=== PATIENT | female | born 1955 | race Caucasian/White ===

== ENCOUNTER 2016-07-24 15:49 | Emergency (ER) | payer BC ==
[~2016-07-24] VITALS: Ht 160 cm; Wt 73.0 kg
[~2016-07-24 15:49] MED LIST: NO MEDS.
[2016-07-24 15:52] VITALS: Ht 160 cm; Wt 73.0 kg
--- NOTE | 2016-07-24 16:23 | ERA ---
ER Documentation Chief Complaint Date/Time DATE: 07/24/16 TIME: 16:18 Chief Complaint LT LEG CRAMPING , NON TRAUMATIC HPI Patient is a 60-year-old female who presents pain in the left leg that feels like and not distressing. Patient describes the pain as 10 out of 10 during a "episode". Patient has had these symptoms before and not only the left but the right leg as well. Patient's had these symptoms about once every other week for the past year or so. Pt denies h/o SYDNI including overuse, strain, or trauma ; Denies constant pain >6 weeks; Denies saddle parasthesia, incontinence, RPNF, or pain exacerbated by valsalva. Pt denies fever, chills, night sweats, weight loss, or increase symptoms at night. Denies h/o sciatica, disk herniation, spinal stenosis, fibromyalgia cancer, HIV, IVDU, arthritis or recent surgery. ROS All systems reviewed and are negative except as per history of present illness. Medications Home Meds Reported Medications [No Meds.] No Conflict Check 12/11/11 [None] No Conflict Check 11/12/11 Allergies Allergies: Coded Allergies: No Known Drug Allergies (Verified Allergy, Unknown, 07/24/16) PMhx/Soc History of Surgery: Yes (D&C,POLYP REMOVAL) Anesthesia Reaction: No Hx Neurological Disorder: No Hx Respiratory Disorders: No Hx Cardiac Disorders: No Hx Psychiatric Problems: No Hx Miscellaneous Medical Probl: No Hx Alcohol Use: Yes (OCCASIONAL) Hx Substance Use: No Hx Tobacco Use: No Physical Exam Vitals Vital Signs Date Time Temp Pulse Resp B/P Pulse Ox O2 Delivery O2 Flow Rate FiO2 07/24/16 15:52 98.1 73 18 143/88 98 Physical Exam Const: Obese 60-year-old female who is sitting in a wheelchair upon entering the room. Patient is Romanian-speaking and daughter is a factory maintenance manager and seems reliable. Head: Atraumatic Eyes: Normal Conjunctiva ENT: Normal External Ears, Nose and Mouth. Neck: Full range of motion..~ No meningismus. Resp: Clear to auscultation bilaterally Cardio: Regular rate and rhythm, no murmurs Abd: Soft, non tender, non distended. Normal bowel sounds Skin: No petechiae or rashes Back: No midline or flank tenderness. Positive straight leg raise test on the left side. No pain with straight leg raise on the right side. Pulses are 2 + bilaterally and patient is neurovascularly intact bilaterally. Ext: No cyanosis, or edema Neur: Awake and alert Psych: Normal Mood and Affect Results 24 hrs Current Medications Medications (Trade) Dose Ordered Sig/Lynne Route PRN Reason Start Time Stop Time Status Last Admin Dose Admin Acetaminophen/ Hydrocodone Bitart ([place] (5/325)) 1 tab ONCE ONCE PO 07/24/16 16:30 07/24/16 16:31 DC Procedures/MDM Patient is a 52-year-old female presents shortly after abrupt onset of pain in the right leg. Patient has had this pain before. Patient denies any incontinence. Patient denies constant pain over 6 months. At this time I do not believe cauda equina syndrome is in the differential diagnosis. Most likely diagnosis at this time is sciatica. Currently off to diagnose right sided due to absence of symptoms on the left side. There is no saddle paresthesia. Patient is stable and is able to walk although diligently. We will go ahead and discharge the patient with advised to follow-up with primary care provider to get a more thorough evaluation and formal referral to an intensive care medicine specialist. Discharge medications will include [place]. Departure Diagnosis: Primary Impression: Sciatica Qualified Code: M54.32 - Sciatica of left side Condition: Stable YANG BANGURA PA-C Jul 24, 2016 16:22
[2016-07-24] MEDS ORDERED: HYDROCODONE/APAP (5/325) TAB PO ONE (16:30)
--- NOTE | 2016-07-24 16:57 | RADRPT ---
PROCEDURE: XR Lumbar Spine. CLINICAL INDICATION: Back pain. TECHNIQUE: Three views. AP, lateral and cone-down lateral view of the lumbar spine were obtained. COMPARISON: No prior studies are available for comparison. FINDINGS: There is normal stature and alignment of the vertebrae. There is no fracture. There is no lytic or blastic lesion. The disk height is normal. There is hypertrophy of the facet joints at L5-S1. The paravertebral soft tissues are unremarkable. IMPRESSION: 1. Degenerative changes at L5-S1. 2. Otherwise unremarkable images of the lumbar spine. RPTAT: QQ .Real Hernandez MD, MD Date Time Electronically viewed and signed by .Real Hernandez MD, on 07/24/2016 16:57 .R/
[2016-07-24] MEDS ORDERED: HYDR-906 PO (17:08)
[2016-07-24 17:38] VITALS: BP 138/78; PULSE 75; RESP 19
== END 2016-07-24 17:39 | disposition home or self-care (01) ==
LOC: FTE 15:49
DX: M54.32 Sciatica, left side (principal)
CPT/HCPCS: 72100

== ENCOUNTER 2016-10-26 07:40 | Emergency (ER) | payer BC, OTHER ==
[~2016-10-26] VITALS: Ht 160 cm; Wt 73.6 kg
[~2016-10-26 07:40] MED LIST changes: +HYDR-906 PO
[2016-10-26 07:44] VITALS: Ht 160 cm; Wt 73.6 kg
--- NOTE | 2016-10-26 08:08 | ERD ---
ER Documentation Chief Complaint Date/Time DATE: 10/26/16 TIME: 08:01 Chief Complaint left leg pain/swelling x 1 day ukn cause HPI 61-year-old female who presented emergency department for nontraumatic left leg pain and swelling for 1 day. Stated that she cannot bear weight on her left lower extremity. Was at her primary care physician yesterday for this complaint , prescribed with Naprosyn without relief, given recommendation for x-ray of the left knee and MRA of the left knee. Was here last July and was diagnosed with left-sided sciatica. Denies headache, loss of consciousness, dizziness, blurry vision, changes in vision, photophobia, facial pain, ear pain, throat pain, difficulty swallowing, neck pain, shoulder pain, chest pain, cough, hemoptysis, abdominal pain, back pain, loss of appetite, nausea, vomiting, hematochezia, diarrhea, constipation, urinary symptoms, , the possibility of being , bladder and bowel incontinences, extremity weakness, numbness or tingling sensation, recent travel, recent exposure to illness, recent antibiotic use in the last 3 months, fever, chills. LMP: None. A0 M1 No known drug allergies. No past medical history. Surgery: Biopsy of the left breast. Medication: Naproxen. Social: Works here in [employer]. Denies smoking, use of alcohol, use of illegal drugs. ROS All systems reviewed and are negative except as per history of present illness. Medications Home Meds Active Scripts Hydrocodone/Acetaminophen (Ava 5-325 Tablet) 1 Each Tablet, 1 TAB PO Q6H Y for PAIN, #7 TAB Prov:YANG BANGURA PA-C 07/24/16 Reported Medications [No Meds.] No Conflict Check 12/11/11 [None] No Conflict Check 11/12/11 Allergies Allergies: Coded Allergies: No Known Drug Allergies (Verified Allergy, Unknown, 07/24/16) PMhx/Soc Medical and Surgical Hx: pt denies Surgical Hx History of Surgery: No Anesthesia Reaction: No Hx Neurological Disorder: No Hx Respiratory Disorders: No Hx Cardiac Disorders: No Hx Psychiatric Problems: No Hx Alcohol Use: No Hx Substance Use: No Hx Tobacco Use: No Smoking Status: Never smoker Physical Exam Vitals Vital Signs Date Time Temp Pulse Resp B/P Pulse Ox O2 Delivery O2 Flow Rate FiO2 10/26/16 07:44 98.1 72 18 120/80 95 Physical Exam CONSTITUTIONAL: Well-appearing; well-nourished; in no apparent distress. HEAD: Normocephalic; atraumatic. EYES: Conjunctiva clear, sclera non-icteric, EOM intact. PERRL Ears: Hearing intact. EACs clear, TMs non-bulging, non-inflamed, translucent & mobile, ossicles normal appearance, No obstructions, no erythema, no discharges Nose: No obstructions. No polyps. No external lesions. Mucosa non-inflamed. No external lesions, septum and turbinates normal. No rhinorrhea. No discharges. Frontal sinus is non-tender to palpation. Maxillary sinus is non-tender to palpation. MOUTH: Moist mucous membranes, no lesion, no obstructions, no vesicles, no thrush, patent airway Throat: Uvula in midline. Right tonsil is +1 with no erythema, no exudate. Left tonsil is +1 with no erythema, no exudate. Tolerating secretions well. Good gag reflex. Patent airway. Neck: Supple, without lesions, bruits, or adenopathy. No mass. Thyroid non- enlarged and non-tender to palpation. CHEST: Symmetrical chest. Respirations even and not labored. No retractions noted. CARDIOVASCULAR: Normal S1, S2. RRR. No murmurs, gallops. RESPIRATORY: Normal chest excursion with respiration; breath sounds clear and equal bilaterally; no wheezes, rhonchi, or rales. Breathing even and unlabored. Speaking in clear, full, and complete sentences w/ ease. ABDOMEN: Normal bowel sounds normal. Soft, round, non-distended, non-guarding, no tenderness, no rebound, no organomegaly, no masses, no pulsating abdominal mass. No hernia. No peritoneal signs. : No CVA tenderness. BACK: Symmetrical shoulder. Spine is midline without deformity, tenderness. No evidence of trauma or deformity. PELVIS: Stable pelvis. No evidence of trauma or deformity. MUSCULOSKELETAL: Normal gait and station. No misalignment, asymmetry, crepitation, defects, tenderness, masses, effusions, decreased range of motion, instability, atrophy or abnormal strength or tone in the head, neck, spine, ribs , pelvis or extremities. Bilateral hips are unremarkable/stable with good and full range of motion. Right lower extremity is unremarkable. Left knee has no obvious deformity/discoloration. Left calf has no discoloration but tender to palpation. Left ankle/foot has no deformity/discoloration and is good and full range of motion. Left pedal pulse is unremarkable. No calf tenderness. NEUROVASCULAR: Distal pulses are present. Pedal pulse are present, equal, and normal. Capillary refills are < 2 seconds. NEUROLOGIC: Alert and oriented x4. Speaks full and clear sentences. Cranial Nerves II-XII normal. Sensation to pain, touch, and proprioception normal. Grossly unremarkable. No neurologic deficits. Romberg test is negative. PSYCHOLOGICAL: The patients mood and manner are appropriate. No hallucinations , delusions. Not SI. Not HI. Has the capacity to decide for self SKIN: Normal for age and ethnicity; warm; dry; good turgor; no apparent lesions or exudates. No rashes, hives, discoloration. Intact. Procedures/MDM Examination: Please see physical examination. Disease process, medical treatment was explained to the patient and family member. They verbalized understanding and agreed with the diagnostic tests, medical treatment, and follow-up care. Case was discussed with supervising emergency room physician, Dr. Estrada Mazariegos who who recommended x-ray of the left knee and left lower extremity ultrasound at this time. Radiology: X-ray of the left knee Impression: Mild tricompartmental degenerative changes of the left knee. Venous Doppler/ultrasound of the left lower extremity Impression: No evidence of deep vein thrombosis within the left lower extremity. Case was discussed with supervising emergency room physician, Dr. Estrada Mazariegos who suggested for me to call Dr. Yariel Lee. Spoke with Dr. Yariel Lee. I discussed with him the results of x-ray and ultrasound. He agreed in my medical decision making to discharge the patient and have her continue her Naprosyn at home. He also stated to have the patient schedule her own MRI. Conversation with Dr. Yariel Lee was discussed with Dr. Estrada Mazariegos who agreed with my medical decision making to discharge the patient. Re-evaluation: No calf tenderness bilaterally. No neurovascular deficits. C- spine/T-spine/L-spine are in midline with good and full range of motion and has no swelling/tenderness/deformity/discoloration. No neurological deficits. Consultation: None. Differential diagnosis: Deep vein thrombosis versus fracture versus dislocation versus displacement versus contusion versus sprain versus sciatica Medical decision makin-year-old female who presented emergency department for nontraumatic left leg pain and swelling for 1 day. Stated that she cannot bear weight on her left lower extremity. Was at her primary care physician yesterday for this complaint, prescribed with Naprosyn without relief, given recommendation for x-ray of the left knee and MRA of the left knee. Was here last July and was diagnosed with left-sided sciatica. I discussed this case with my supervising emergency room physician, Dr. Estrada Mazariegos who agreed in my medical decision making to discharge patient. I also discussed this case with her primary care physician, Dr. Yariel Lee who agreed medical decision making discharge the patient and have the patient schedule her own MRI outpatient. Medications prescribed are the following: Continue her prescribed medication, Naproxen. Patient and family member are made aware of the side effects and adverse reactions of the medications prescribed. Instructed on when to seek emergent and medical attention in case allergic/anaphylactic reactions or severe side effects and or adverse reactions to medications. Patient and family member verbalized understanding. Patient instructed Instructed to follow-up with his PCP in 24-48 hours. Instructed to Call 911 for chest pain, shortness of breath. Advised to come back here in ED as soon as possible for severity of symptoms which includes but not limited to: any new symptoms; shortness of breath/difficulty of breathing; cardiovascular changes; severe gastrointestinal symptoms; signs and symptoms of bleeding and or infection; signs of compartment syndrome/neurovascular changes; neurological changes/deficits. Patient and family member verbalized understanding. Upon discharge, patient is alert and oriented x 4, speaks full and clear sentences, denies pain, has no neurological deficits, has no neurovascular deficits, difficulty of breathing. Breathing even and unlabored. Lung sounds are clear to auscultation. Not in distress. Appears comfortable. Ambulatory with steady gait. Appears satisfied with care provided here in ED. Departure Diagnosis: Primary Impression: DJD (degenerative joint disease) Additional Impression: Knee pain Condition: Stable Additional Instructions: Instructed to follow-up with his PCP in 24-48 hours. Instructed to Call 911 for chest pain, shortness of breath. Advised to come back here in ED as soon as possible for severity of symptoms which includes but not limited to: any new symptoms; shortness of breath/difficulty of breathing; cardiovascular changes; severe gastrointestinal symptoms; signs and symptoms of bleeding and or infection; signs of compartment syndrome/neurovascular changes; neurological changes/deficits. Patient and family member verbalized understanding. ALIE PEARCE Oct 26, 2016 08:08
--- NOTE | 2016-10-26 08:38 | RADRPT ---
PROCEDURE: Ultrasound of the left lower extremity venous system. CLINICAL INDICATION: Left leg pain and swelling, deep venous thrombosis TECHNIQUE: Morrissey scale with and without compression, color doppler, spectral doppler of the venous system of the left lower extremity was performed. Venous augmentation maneuvers were utilized. COMPARISON: No prior studies are available for comparison. FINDINGS: Common femoral vein: Patent. Femoral vein: Patent. Popliteal vein: Patent. Calf veins: Patent. No soft tissue abnormalities are identified. IMPRESSION: No evidence of a deep vein thrombosis within the left lower extremity. RPTAT: AADD .Eliseo Garcia MD, MD Date Time Electronically viewed and signed by .Eliseo Garcia MD, on 10/26/2016 08:38 .B/
--- NOTE | 2016-10-26 10:13 | RADRPT ---
PROCEDURE: Left knee series. CLINICAL INDICATION: Left knee pain TECHNIQUE: 4 views of the left knee. COMPARISON: None available FINDINGS: There is normal mineralization and alignment of the left knee. No acute fracture or dislocation is seen. There is mild tricompartmental joint space narrowing and osteophyte formation. No definite j oint effusion is seen. The soft tissues are within normal limits. IMPRESSION: 1. Mild tricompartmental degenerative changes of the left knee. RPTAT: KK .Vitaliy Ugalde MD, MD Date Time Electronically viewed and signed by .Vitaliy Ugalde MD, on 10/26/2016 10:12 .B/
== END 2016-10-26 10:40 | disposition home or self-care (01) ==
LOC: FTE 07:40 → EEVIPCON 07:40 → MERGE 07:40 → FTE 10:40
DX: M19.90 Unspecified osteoarthritis, unspecified site (principal); M25.562 Pain in left knee
CPT/HCPCS: 73562; 93971

== ENCOUNTER → 2016-11-08 | Outpatient (CLI) | payer BC ==
[~2016-11-08] MED LIST changes: +PAIN MED
--- NOTE | 2016-11-15 13:27 | HKNOTE ---
DATE OF SERVICE: 11/08/2016 Dr. Yariel Lee [address] [facility] [address] [place] [address] Lee: Thank you for referring Bindu Garcia who was seen in my office today complaining of pain, swelling and instability of her left knee. She has all the classic symptoms, clinical and imaging findings of a torn medial meniscus. She does have some mild arthritis of the knee as well. She most definitely will need to have an arthroscopic operation on the knee and that will be scheduled to be performed in the near future. Thank you for your confidence in referring her to my care. With warmest regards, Dictated By: Mario Lopez MD /ada/alex /Document#: [id number]
--- NOTE | 2016-11-15 13:27 | HKNOTE ---
DATE OF SERVICE: 11/08/2016 REFERRING PHYSICIAN: Dr. Yariel Lee [id number] [place] [address] MAIN COMPLAINT: Pain in the left knee. HISTORY OF MAIN COMPLAINT: The patient is a 61-year-old female, who woke up with pain in her knee about 2 months ago. There was absolutely no history of injury to the knee. She saw Dr. Yariel Lee, who referred her for an MRI scan and an x-ray. Positive pathology was found and he referred her to me for further evaluation and management. The patient's pain does radiate down the cautery down the left leg from the knee. The pain is described as being severe and is aggravated by walking, weightbearing and stair climbing. The knee is very unstable and she can hardly walk because of the instability. The knee also locks and it swells. She does get rest pain and night pain. She has been taking ibuprofen and Naprosyn. The Naprosyn seems to help the most. She has also been icing the knee and elevating the leg. The patient has a history of pain in the lower back. She has never had an MRI scan of her lumbar spine. She has not had any treatment for her back. The patient does get pain in her lower back and she also has numbness and tingling in the left leg as well as in the left foot. The patient does not use a walking aid but she states "I am in severe pain and can't walk at all." Patient limps all the time. PAST ORTHOPEDIC HISTORY: Previous orthopedic operations: None. PRIOR CORTISONE INTAKE: None. ALCOHOL INTAKE: Only on special occasions. OTHER JOINT PROBLEMS: None. BLOOD TESTS FOR ARTHRITIS: None. WORK STATUS: The patient works in [employer]. She is well known to me from the hospital. 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 PAST MEDICAL HISTORY: Negative. PAST SURGICAL HISTORY: Negative. DRUG ALLERGIES: None. MEDICATIONS: Naprosyn. FAMILY HISTORY: Noncontributory. SYSTEMS REVIEW: Entirely negative. HABITS: Patient does not smoke or drink alcoholic beverages. VINEYARD TENDER: Dr. Yariel Lee. [id number] [place], [place] [address]. PHYSICAL EXAMINATION: GENERAL: The patient is an extremely fit-looking and youthful 61- year-old female. She has a marked antalgic gait. She does not use a walking aid. VITAL SIGNS: Height 5 foot 5 inches. weight 162 pounds. Blood pressure 100/55, temperature 98.7. NEUROLOGIC: Sensory and motor are within normal limits. Deep tendon reflexes: Right knee plus, left knee plus, right ankle, plus left ankle plus. Straight leg raising is negative bilaterally to 80 degrees. HIPS: Both hips have a full range of motion without pain. KNEES: Left knee, extension lacks 5 degrees and markedly painful to attempt to overcome the lack of extension. Flexion lacks 20 degrees )marked pain on attempting further flexion). No calf tenderness. 1+ effusion. All ligaments are intact. Homans sign is negative. Tender over the medial joint line. No calf tenderness (the patient's pain radiates to the calf from the knee but clinically there is no suggestion of deep vein thrombosis). IMAGING: X-rays of the left knee obtained at the [facility] were reviewed (3 views). These show mild degenerative changes affecting all 3 compartments. Excellent joint space remaining. No secondary changes such as subchondral sclerosis or cyst formation. An MRI scan of the left knee obtained on 10/26/2016, is reported by MD Reyna, as showing "oblique undersurface tear of the posterior horn of the medial meniscus with additional inner marginal fraying of the medial meniscus body and moderate grade chondral loss of the weightbearing medial femoral condyle. High grade chondral loss of the median ridge of the patella. Moderate- size knee joint effusion. No osseous or acute ligamentous abnormalities." A Doppler ultrasound of the left leg obtained on 10/26/2016, is reported by Dr. Garcia, as showing "no evidence of deep vein thrombosis within the left lower extremity." DIAGNOSES: 1. Torn medial meniscus of the left knee. 2. [id number] degenerative osteoarthritis of the left knee. 3. Symptoms suggestive of a possible left-sided sciatica with normal neurological examination. MANAGEMENT: The patient is advised that she will definitely need to have an arthroscopic operation on the knee. The procedure and some of the major possible complications were discussed with her in a fair amount of detail (she comes in with a family member who translates for her). The postoperative course was discussed with her. Pre and postoperative course was discussed with her. The patient is given prescription for tramadol 50 mg p.o. t.i.d. as both full management of current pain and postoperative pain. Her surgery will be scheduled to be performed in the near future. Dictated By: Mario Lopez MD /ada/alex /Document#: [id number]
== END | disposition home or self-care (01) ==
LOC: HKI 14:18
DX: S83.242A Other tear of medial meniscus, current injury, left knee, initial encounter (principal); X58.XXXA Exposure to other specified factors, initial encounter; M17.12 Unilateral primary osteoarthritis, left knee
CPT/HCPCS: G0463

== ENCOUNTER → 2016-11-15 | Outpatient (CLI) | payer BC ==
--- NOTE | 2016-11-16 03:46 | HKNOTE ---
DATE OF SERVICE: 11/15/2016 HISTORY OF PRESENT ILLNESS: The patient comes in for preoperative evaluation. She is going to have operative arthroscopy on her left knee on 11/16/2016. She has been cleared for surgery by Dr. Yariel Lee. Numerous questions were asked and answered. Postoperative course was discussed with her. She was given a prescription for postoperative pain management. Dictated By: Mario Lopez MD /ada/mary beth /Document#: [id number]
== END | disposition home or self-care (01) ==
LOC: HKI 13:28
DX: Z01.818 Encounter for other preprocedural examination (principal)
CPT/HCPCS: G0463

== ENCOUNTER 2016-11-16 06:11 | Day surgery (SDC) | payer BC ==
[2016-11-13 08:16] LABS: BASOPHILS % 0.8 % (0.0-2.0); EOSINOPHILS # 0.1 10^3/ul (0.0-0.5); HEMATOCRIT 39.9 % (37.0-47.0); HEMOGLOBIN 13.1 g/dl (12.0-16.0); LYMPHOCYTES % 50.5 % (15.0-51.0); MEAN CORPUSCULAR HEMOGLOBIN 30.5 pg (29.0-33.0); MEAN CORPUSCULAR HGB CONC 32.8 g/dl (32.0-37.0); MEAN PLATELET VOLUME 9.7 fl (7.4-10.4); MONOCYTE # 0.3 10^3/ul (0.3-0.9); MONOCYTES % 7.8 % (0.0-11.0); NEUTROPHIL # 1.5 10^3/ul (1.6-7.5); NEUTROPHILS % 38.9 % (39.0-77.0); PLATELET COUNT 251 10^3/UL (140-415); RED BLOOD COUNT 4.29 10^6/ul (4.20-5.40); RED CELL DISTRIBUTION WIDTH 13.2 % (11.5-14.5)
[2016-11-13 08:48] LABS: ADD UMIC YES; ALBUMIN 4.5 g/dl (3.3-4.9); ALBUMIN/GLOBULIN RATIO 1.36; BILIRUBIN,INDIRECT 0.1 mg/dl (0-1.1); BILIRUBIN,TOTAL 0.1 mg/dl (0.2-1.3); INR 0.89; PT RATIO 0.9; TOTAL PROTEIN 7.8 g/dl (6.1-8.1); UR ASCORBIC ACID NEGATIVE (NEGATIVE); UR BILIRUBIN (Dip) NEGATIVE (NEGATIVE); UR BLOOD (Dip) NEGATIVE (NEGATIVE); UR CLARITY CLEAR (CLEAR); UR COLOR YELLOW (YELLOW); UR GLUCOSE (Dip) NEGATIVE (NEGATIVE); UR KETONES (Dip) NEGATIVE (NEGATIVE); UR LEUKOCYTE ESTERASE (Dip) 2+ Leu/ul (NEGATIVE); UR NITRITE (Dip) NEGATIVE (NEGATIVE); UR RBC 3 /HPF (0-5); UR SPECIFIC GRAVITY (Dip) 1.016 (1.003-1.030); UR TOTAL PROTEIN (Dip) NEGATIVE (NEGATIVE); UR UROBILINOGEN (Dip) NEGATIVE (NEGATIVE)
[2016-11-13 08:49] LABS: PARTIAL THROMBOPLASTIN TIME 26.3 Sec (25.0-35.0)
[2016-11-13 09:00] LABS: CALCIUM 9.3 mg/dl (8.4-10.2); CREATININE 0.68 mg/dl (0.44-1.00); POTASSIUM 4.3 mmol/L (3.5-5.1)
--- NOTE | 2016-11-13 09:06 | RADRPT ---
PROCEDURE: XR Chest. CLINICAL INDICATION: Preop TECHNIQUE: PA and lateral views of the chest were obtained COMPARISON: Chest 09/17/2015 FINDINGS: The heart is within normal limits in size. There is atherosclerosis of the thoracic aorta. There i s no evidence of pulmonary vascular congestion acute lung consolidation pleural effusions and pneumo thorax. IMPRESSION: No evidence of acute cardiopulmonary disease. RPTAT:AAJJ Physician Pearl Date Time Electronically viewed and signed by Analisa Zelaya Physician on 11/13/2016 09:06 BM/
--- NOTE | 2016-11-13 15:48 | HP ---
DATE OF ADMISSION: 11/16/2016 HISTORY OF PRESENT ILLNESS: This 61-year-old female patient is known to me. She was seen in my office on 10/27/2016 with severe local pain to the left knee. The patient eventually was also seen in the emergency room. MRI was done. The MRI of the left knee showed significant findings including a tear of the posterior horn of the medial meniscus of the left knee. The patient was seen by Dr. Lopez and she will have surgery in this hospital on 11/16/2016, which is this Saturday. The patient was seen for medical clearance in my office. She denies any physical complaints except for the left knee. The patient was seen on 11/12/2016 in my office for medical clearance, at which time she denied any coughing, chest pain, shortness of breath, or others. The patient is known to have a good physical condition. 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 The patient did not have any history of accidents leading to the left knee problems. PAST MEDICAL HISTORY: She was actually in [facility] for outpatient surgery, which was dilatation and curettage in September of last year, and she did fine. She did have also later in March 2016, a right breast biopsy. She was also again cleared medically by this examiner. MEDICATIONS: The patient does not take medication for long-term use. She was given Naprosyn as an outpatient for her left knee problem. She was seen by Dr. Lopez to discuss the surgery, which is coming up as mentioned above, 11/16/2016, in a few days. FAMILY HISTORY: Negative for diabetes. ALLERGIES: NO KNOWN ALLERGIES. REVIEW OF SYSTEMS: CENTRAL NERVOUS SYSTEM: No history of strokes or seizures, or head trauma. CARDIOVASCULAR: No history of hypertension or angina. PULMONARY: Negative. No history of COPD or asthma. GASTROINTESTINAL: The usual indigestion on and off but no history of peptic ulcer disease or others. ENDOCRINOLOGY: Negative for diabetes. Negative for thyroid disorder. MUSCULOSKELETAL: The usual complaints of osteoarthritis. PHYSICAL EXAMINATION: GENERAL APPEARANCE: The patient is a well-developed, well- nourished, female in no acute distress. VITAL SIGNS: Blood pressure 116/66, heart rate 66 per minute, regular and full. Temperature 97 F. Respiratory rate 16 per minute. HEENT: Head is normocephalic. No signs of trauma noted. Eyes: Pupils round, equal, and reactive to light and accommodation. Sclerae anicteric bilaterally. Ears normal. Nose, mouth, and throat unremarkable. NECK: Supple and benign. No jugular venous distention noted. No lymphadenopathy noted. Trachea midline. LUNGS: Clear to auscultation and percussion. HEART: Regular rate and rhythm. The heart examination revealed the first and second heart sounds. S3 and S4 are absent. No murmurs noted. ABDOMEN: Soft and benign. The abdomen is nontender and soft with bowel sounds. No organomegaly noted. No masses noted. GENITOURINARY: Genitalia refused. RECTAL: Refused. EXTREMITIES: No edema. No clubbing. No cyanosis noted. Peripheral pulses are adequate and symmetrical bilaterally. The left knee is swollen, very tender with limited range of motion. The patient is limping. NEUROLOGIC: The patient is awake, alert, and oriented x4. She has no focals. DATA: The patient was sent to [facility] for preoperative testing including EKG, chest x-ray, and lab tests. They are pending at this point in time. We will look at them before surgery. DIAGNOSES: 1. Gait disorder. The patient is severely limping. 2. Tear of the posterior horn of medial meniscus of the left knee. 3. 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 4. Moderate joint fluid of left knee. PLAN: The patient will have arthroscopy of the left knee by Dr. Lopez on 11/16/2016, probably as an outpatient. She will go home the same day after adequate recovery. She will be seen in followup as an outpatient between my office and Dr. Lopez's office. Dictated By: Yariel Lee MD /ada/rika /Document#: [id number]
--- NOTE | 2016-11-14 15:34 | RADRPT ---
Vent Rate: 55 bpm RR Interval: 0 msec UT Interval: 212 msec QRS Duration: 84 msec QT Interval: 416 msec QTC Interval: 397 msec P-R-T Pearson: 37 - 36 - 44 degrees Sinus bradycardia with 1st degree AV block Otherwise normal ECG Electronically Signed By: Jimmy Shah [id number]
[2016-11-16] VITALS (15 sets, daily range): BP systolic 100–115; BP diastolic 56–67; PULSE 67–88; RESP 16–35; Ht 162.6 cm; Wt 73.5 kg
[~2016-11-16] VITALS: Ht 162.6 cm; Wt 73.5 kg
[~2016-11-16 06:11] MED LIST changes: +ACETAMINOPHEN 1000MG/100ML IV 100 ML IVPB ONE; +CELECOXIB 200 MG CAP PO ONE; +DEXAMETHASONE 4 MG/ML 1 ML INJ IV ONE; +LACTATED RINGER'S 1,000 ML IV* SCH; +LANSOPRAZOLE 30 MG CAP PO ONE; +ONDANSETRON 4 MG INJ IV ONE; -PAIN MED; +VANCOMYCIN 1 GM in NS 250 ML IVPB SCH; +oxyCODONE (CR) 10 MG TAB [oxyCONTIN] PO ONE
[2016-11-16] MEDS ORDERED: PAIN MED (06:35)
--- NOTE | 2016-11-16 06:42 | HPN ---
Date/Time of Note Date/Time of Note DATE: 11/16/16 TIME: 06:42 Interval H&P Admission Note Pt. seen H&P reviewed: No system changes STAR CARBONE PA-C Nov 16, 2016 06:42
[2016-11-16] MEDS ORDERED: LIDOCAINE 2% (SDV) 5 ML INJ ONE (07:00)
[2016-11-16] MEDS ORDERED: DESFLURANE 15 MIN ONE (07:00)
[2016-11-16] MEDS ORDERED: ROPIVACAINE 0.5 % 30 ML VIAL ONE (07:46)
[2016-11-16] MEDS ORDERED: BUPIVACAINE 0.25%/EPI (SDV) 10 ML INJ ONE ×2 (07:46→08:36)
[2016-11-16] MEDS ORDERED: morphine SULFATE/PF (10 MG/10 ML) INJ ONE (07:47)
[2016-11-16] MEDS ORDERED: KETOROLAC 30 MG INJ ONE (07:47)
[2016-11-16] MEDS ORDERED: PROPOFOL 20 ML ONE (07:58)
[2016-11-16] MEDS ORDERED: GLYCOPYRROLATE 0.4 MG INJ ONE (07:58)
[2016-11-16] MEDS ORDERED: CEFAZOLIN 1 GM INJ ONE ×2 (07:58→08:17)
[2016-11-16] MEDS ORDERED: ROCURONIUM 50 MG INJ ONE (07:58)
[2016-11-16] MEDS ORDERED: NEOSTIGMINE 3 MG/3 ML SYRINGE ONE (07:58)
[2016-11-16] MEDS ORDERED: MIDAZOLAM 1 MG/ML 2 ML INJ ONE (07:59)
[2016-11-16] MEDS ORDERED: FENTAnyl 50 MCG/ML VIAL ONE ×2 (07:59→08:50)
[2016-11-16] MEDS ORDERED: ONDANSETRON 4 MG INJ ONE (07:59)
[2016-11-16] MEDS ORDERED: DEXAMETHASONE 4 MG/ML 1 ML INJ ONE (07:59)
[2016-11-16] MEDS ORDERED: SUGAMMADEX SODIUM 200 MG/2 ML VIAL IV ONE (09:13)
[2016-11-16] MEDS ORDERED: HYDROCODONE/APAP (5/325) TAB PO PRN (09:30)
[2016-11-16] MEDS ORDERED: HYDROCODONE/APAP (10/325) TAB PO PRN (09:30)
[2016-11-16] MEDS ORDERED: morphine 10 MG INJ IV PRN (09:30)
[2016-11-16] MEDS ORDERED: ACETAMINOPHEN 1000MG/100ML IV 100 ML IVPB ONE (09:30)
[2016-11-16] MEDS ORDERED: ONDANSETRON 4 MG INJ IV PRN (09:30)
[2016-11-16] MEDS ORDERED: HYDROmorphONE (0.2 MG/ML) 10ML SYG IV ONE (09:37)
--- NOTE | 2016-11-16 09:38 | OPR ---
Date/Time of Note Date/Time of Note DATE: 11/16/16 TIME: 09:34 Operative Report Preoperative Diagnosis Torn medial meniscus Postoperative Diagnosis Torn medial meniscus [id number] degenerative arthritis of the medial compartment of the knee Operation/Procedure Performed Operative brought Partial medial meniscectomy Surgeon: KRISTEN AGUIRRE MD miner assistant: STAR CARBONE PA-C Anesthesia: general Estimated Blood Loss: none Complications: None KRISTEN AGUIRRE MD Nov 16, 2016 09:38
[2016-11-16] MEDS ORDERED: HYDROmorphONE 1 MG/ML SYG IM STA (09:47)
[2016-11-16] MEDS ORDERED: HYDROmorphONE 1 MG/ML SYG IV STA ×2 (09:56)
--- NOTE | 2016-11-16 10:00 | OPR ---
Date/Time of Note Date/Time of Note DATE: 11/16/16 TIME: 09:46 Operative Report Free Text/Dictation Date of operation: [] Surgeon: Mario Aguirre MD Well Shooter: [Star Lopez] Anesthesiologist: [Katelyn] Preoperative diagnoses: Torn medial meniscus Postoperative diagnoses: Torn medial meniscus. Mild to moderate disc degenerative changes of the medial compartment and patellofemoral joint Operation: 1. Diagnostic arthroscopy 2. Partial medical meniscectomy Findings at surgery: There were grade 1 degenerative change of the lateral femoral condyle. Grade 2 degenerative changes of the lateral tibial plateau Grade 2/grade 3 generative changes of the medial tibial plateau and medial femoral condyle The medial meniscus showed compound tear of the posterior third. Description of procedure: Under general anesthetic, the patient's left leg was prepared and draped in the usual sterile fashion. A tourniquet was not used. Standard anteromedial and interolateral portals were used. The camera was used thorugh the lateral portal throughout the operation. the knee was systematically inspected and the above findings were noted using a variety of basket forcets, a partial medial meniscectomy was performed. A tourniquet was not used. The tears were restricted to the posterior third of the meniscus, and the remaining meniscus was balanced and stable. The pump pressure was lowered, and bleeding points were cauterized. The pump pressure was then placed again to clear the knee. A light abrasion chondroplasty was performed on the medial femoral condyle. The cruciate ligaments were found to be frayed but intact. The camera was now moved into the lateral compartment where the meniscus was found to be markedly irregular and showed extensive tears of the entire medial edge. Using a variety of basket forceps and the motorized intra-articular shaver, and the Coblation wand,a partial medial meniscectomy was performed. The remaining meniscus was balanced and stable. At the end of the procedure, the knee was copiously irrigated to remove all contained fragments. The fluid was aspirated. The wounds were closed using interrupted nylon. The knee was injected prior with a mixture of Duramorph, Naropin and Toradol. The usual streile dressings were applied. The patient's condition at the end of the procedure was satisfactory. There were no complications as fas as is known. Patient was returned to the recovery room in stable condition. Procedure Date: Nov 16, 2016 Surgeon: MARIO AGUIRRE MD instructional assistant: STAR CARBONE PA-C Anesthesia: general Estimated Blood Loss: none Complications: None MARIO AGUIRRE MD Nov 16, 2016 10:00
== END 2016-11-16 12:58 | disposition home or self-care (01) ==
LOC: SDS 06:11
DX: M23.222 Derangement of posterior horn of medial meniscus due to old tear or injury, left knee (principal); M17.12 Unilateral primary osteoarthritis, left knee
CPT/HCPCS: 29881; 71020; 80053; 81001; 85025; 85610; 85651; 85730; 93005; J0131; J1100; J1170; J1885; J2250; J2274; J2405; J2795; J3010; J3370; J0690; J2710

== ENCOUNTER → 2016-11-20 | Outpatient (CLI) | payer BC ==
[~2016-11-20] MED LIST changes: -ACETAMINOPHEN 1000MG/100ML IV 100 ML IVPB ONE; -CELECOXIB 200 MG CAP PO ONE; -DEXAMETHASONE 4 MG/ML 1 ML INJ IV ONE; -HYDR-906 PO; -LACTATED RINGER'S 1,000 ML IV* SCH; -LANSOPRAZOLE 30 MG CAP PO ONE; -ONDANSETRON 4 MG INJ IV ONE; +PAIN MED; -VANCOMYCIN 1 GM in NS 250 ML IVPB SCH; -oxyCODONE (CR) 10 MG TAB [oxyCONTIN] PO ONE
--- NOTE | 2016-11-20 15:01 | PN ---
Date/Time of Note Date/Time of Note DATE: 11/20/16 TIME: 14:57 Outpatient Progress Note Chief Complaint Status post arthroscopy with left partial meniscectomy on 11/16/2016 HPI 61-year-old female presents today for postoperative appointment status post left knee arthroscopic surgery with partial medial meniscectomy performed on 11/16. Patient has been nonweightbearing since the surgery due to fear. She has been provided with crutches. Denies any shortness of breath, chest pain/ tightness. She does have complaints of mild pain to the left calf. Denies any fall or injury since she was last seen. Has not been performing any at home therapy such as range of motion. Patient states that she does have pain but controlled with pain medication that she is using as needed. Review of Systems Const: No Fever, no chills, no Fatigue, normal appetite, no diaphoresis. Resp: No SOB, no wheezing, no chest pain. CV: No chest pain, no palpitaions, no HOOKER. Physical Exam Blood pressure is 115/83, temperature is 98.4, pulse is 100, respiratory rate is 18, height is 5 foot 4 inches, weight is 162 pounds General Appearance: well-developed, well-nourished, in no acute distress. Left knee: Sutures are clean dry and intact. No signs of infection. Patient is able to actively flex up to 90. Passive flexion goes up to 115 with pain. About 5-10 lack from full extension. Patient is able to weight-bear today and denies any discomfort. Patient has fear of applying partial weightbearing even with crutches. Normal sensory examination to light touch. Mildly positive Homans sign on exam today to the left side. Allergies Coded Allergies: No Known Drug Allergies (Verified Allergy, Unknown, 11/16/16) Assessment/Plan * Dress change performed today * Review of arthroscopic imaging discussed with patient and patient's son. * Prescription for physical therapy with instructions to start after next week' s appointment when jeff are removed. * Patient was encouraged to partially weight-bear to the point where she feels comfortable and then gradually increase to full weightbearing and end-stage independent ambulation without use of crutches. * Stat venous Doppler ordered today for rule out of DVT to the left lower extremity. * Follow-up 1 week for repeat evaluation, suture removal. Medications Home Meds Reported Medications [Pain Med] No Conflict Check 11/16/16 [No Meds.] No Conflict Check 12/11/11 [None] No Conflict Check 11/12/11 Discontinued Scripts Hydrocodone/Acetaminophen ([facility] 5-325 Tablet) 1 Each Tablet, 1 TAB PO Q6H Y for PAIN, #7 TAB Prov:YANG BANGURA PA-C 07/24/16 STAR CARBONE PA-C Nov 20, 2016 15:01
== END | disposition home or self-care (01) ==
LOC: HKI 14:31
DX: Z47.89 Encounter for other orthopedic aftercare (principal); S83.242D Other tear of medial meniscus, current injury, left knee, subsequent encounter

== ENCOUNTER → 2016-11-27 | Outpatient (CLI) | payer BC ==
--- NOTE | 2016-11-27 14:10 | PN ---
Date/Time of Note Date/Time of Note DATE: 11/27/16 TIME: 14:07 Outpatient Progress Note Chief Complaint Postoperative follow-up HPI 61-year-old female presents today for follow-up status post left knee partial medial meniscectomy on 11/16/2016. Patient states that she continues with pain that is widely variable depending on activity. Pain can range from 1-10/10 on the pain scale. Pain increases with activity. Denies any falls or injury. Does have stiffness and limited range of motion secondary to discomfort. Denies any calf pain, chest pain or tightness. Review of Systems Const: No Fever, no chills, no Fatigue, normal appetite, no diaphoresis. Resp: No SOB, no wheezing, no chest pain. CV: No chest pain, no palpitaions, no HOOKER. Physical Exam Blood pressure is 135/75, temperature is 98.8, pulse is 68, respiratory rate is 12, weight is 162 pounds General Appearance: well-developed, well-nourished, in no acute distress. Left knee: Sutures are clean dry and intact. Surgical wound clean dry and intact with no signs of infection. No tenderness to palpation to the knee today. Pain with range of motion. She is able to actively flex up to 95-100. About less than 5 lag from full extension on exam. Pain with range of motion on flexion and extension. 5/5 strength on resistance. Antalgic gait with slight limping secondary to left knee pain with weightbearing. Allergies Coded Allergies: No Known Drug Allergies (Verified Allergy, Unknown, 11/16/16) Assessment/Plan * Suture removal performed today. Steri-Strips applied. * Patient was advised to initiate physical therapy and she states that she is scheduled to begin next week. * Celebrex 100 mg 1 tab p.o. twice daily #60 with one refill provided today. * Continue with [place] as needed for severe pain. Advised to take prior to initiation of physical therapy sessions. * Follow-up as needed Dr. Lopez was present for examination and agrees with plan. Medications Home Meds Reported Medications [Pain Med] No Conflict Check 11/16/16 [No Meds.] No Conflict Check 12/11/11 [None] No Conflict Check 11/12/11 STAR CARBONE PA-C Nov 27, 2016 14:10
== END | disposition home or self-care (01) ==
LOC: HKI 13:43
DX: Z47.89 Encounter for other orthopedic aftercare (principal); S83.242D Other tear of medial meniscus, current injury, left knee, subsequent encounter

== ENCOUNTER → 2017-01-08 | Outpatient (CLI) | payer BC ==
--- NOTE | 2017-01-08 10:12 | PN ---
Date/Time of Note Date/Time of Note DATE: 01/08/17 TIME: 10:07 Outpatient Progress Note Chief Complaint Left knee pain status post arthroscopy HPI 61-year-old female presents today for postoperative appointment. She is status post left knee arthroscopic surgery with partial medial meniscectomy performed on 11/16/2016. Patient continues to progress but states that she has been having ongoing pain to the left knee and has been noticing swelling with activity. She states that after 2-3 hours of weightbearing activity she begins to experience pain, primarily to the medial compartment, followed by swelling that goes away with rest. She has difficulty fully extending and flexing while walking which has resulted in slight limp. Discomfort with climbing and descending stairs. Denies any falls or injury. Denies any calf pain, chest pain/tightness or shortness of breath. Presents today for repeat evaluation. She has been using some of her daughter's Duexis pills which has been helping with her pain and discomfort. Review of Systems Const: No Fever, no chills, no Fatigue, normal appetite, no diaphoresis. Resp: No SOB, no wheezing, no chest pain. CV: No chest pain, no palpitaions, no HOOKER. Physical Exam Blood pressure is 136/75, temperature is 98.9, pulse is 74, respiratory rate is 12, height is 5 foot 4 inches, weight is 162 pounds General Appearance: well-developed, well-nourished, in no acute distress. Left knee: Well-healed surgical scar status post arthroscopy. Patient is able to fully extend the left knee actively and she is able to flex left knee up to 125 today. Pain when patient reaches maximum point of flexion. Positive tenderness to palpation to the medial compartment. Negative Francheska's test. Positive Sanjeev's test of the medial compartment. Normal sensory examination to light touch. 5/5 strength on resistance with flexion and extension. Patient does have slight limp with ambulation. Allergies Coded Allergies: No Known Drug Allergies (Verified Allergy, Unknown, 11/16/16) Assessment/Plan Problems: (1) Status post arthroscopic partial medial meniscectomy (2) Knee pain * Direct discussion with Dr. Lopez was had today. Dr. Lopez recommends cortisone injection to the left knee to see if this can calm inflammation. Patient is scheduled to return to work on 01/21/[address] Lopez recommends follow-up in 1 week to see if there has been an improvement. * Soft sleeve knee brace also recommended for increased joint stabilization and stability. * Patient has provided consent to proceed with cortisone injection. 2 cc of 40 mg/mL of Kenalog mixed with 6 cc of 0.25% Marcaine used today. Area was anesthetized with cold spray. Using 25-gauge needle, joint injection was performed without complication. Prior to injection, Betadine swab used to sterilize the area. Patient was observed for 3-5 minutes before discharge. * Prescription of Duexis 800/26.6 mg 1 tab p.o. twice daily #60 with 1 refill provided for patient today. * Follow-up one week for repeat evaluation. Dr. Lopez was present for examination and agrees with plan. Medications Home Meds Reported Medications [Pain Med] No Conflict Check 11/16/16 [No Meds.] No Conflict Check 12/11/11 [None] No Conflict Check 11/12/11 STAR CARBONE PA-C Jan 08, 2017 10:12
== END | disposition home or self-care (01) ==
LOC: HKI 09:24
DX: M25.562 Pain in left knee (principal); S83.242D Other tear of medial meniscus, current injury, left knee, subsequent encounter

== ENCOUNTER → 2017-01-17 | Outpatient (CLI) | payer BC ==
--- NOTE | 2017-01-17 09:46 | PN ---
Date/Time of Note Date/Time of Note DATE: 01/17/17 TIME: 09:41 Outpatient Progress Note Chief Complaint Status post left knee arthroscopy HPI 61-year-old female presents today for follow-up status post left knee arthroscopic surgery with partial medial meniscectomy on 11/16/2016. Patient was last seen on 01/08/2017. Left knee cortisone injection was performed as she has had ongoing pain status post surgery. Patient states that her inflammation and pain is significantly decreased. She does get pain exacerbations however, typically with physical therapy sessions as she states that when she is performing strenuous activity to the left knee can flareup. Pain then reduces after therapy. Duexis was provided last week in regards to prescription but prescription was denied by insurance. Patient would like to discuss alternative medication for anti-inflammatory effect today. She denies any falls or injury since she was last seen. She does state that her pain and discomfort has improved after cortisone injection that is ongoing. Presents today for repeat evaluation. Review of Systems Const: No Fever, no chills, no Fatigue, normal appetite, no diaphoresis. Resp: No SOB, no wheezing, no chest pain. CV: No chest pain, no palpitaions, no HOOKER. Physical Exam Blood pressure is 117/63, temperature is 98.5, pulse is 85, respiratory rate is 12, height is 5 foot 4 inches, weight is 162 pounds. General Appearance: well-developed, well-nourished, in no acute distress. Left knee: No tenderness to palpation on exam today. Patient is seated comfortably with knee at 90 and is able to flex up to 110 today. Full extension on observation. Gait showing slight limp but no antalgic gait on exam today. Allergies Coded Allergies: No Known Drug Allergies (Verified Allergy, Unknown, 11/16/16) Assessment/Plan Problems: (1) Status post arthroscopic partial medial meniscectomy * Ibuprofen 800 mg 1 tab p.o. 3 times daily #90 with 1 refill and Prilosec 20 mg 1 tab p.o. daily #30 with one refill provided today. * Continue with [place] prior to physical therapy to help alleviate pain complaints and make it easier for patient to perform her activities. * Patient remaining off work will be extended for 3 weeks to continue with rehabilitation. 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 * Patient will follow up in 3 months for repeat evaluation to see how she has been doing after returning to work as well as effect of cortisone injection. Future consideration may be cortisone injection if it remains effective versus possible hyaluronic acid direct injection. * At home exercises encouraged. Anti-inflammatories as needed. * Follow-up 3 months Medications Home Meds Reported Medications [Pain Med] No Conflict Check 11/16/16 [No Meds.] No Conflict Check 12/11/11 [None] No Conflict Check 11/12/11 STAR CARBONE PA-C Jan 17, 2017 09:46
== END | disposition home or self-care (01) ==
LOC: HKI 09:19
DX: M25.562 Pain in left knee (principal); Z09 Encounter for follow-up examination after completed treatment for conditions other than malignant neoplasm; Z96.652 Presence of left artificial knee joint

== ENCOUNTER 2017-01-21 08:15 | Day surgery (SDC) | payer BC ==
[~2017-01-21] VITALS: Ht 160 cm; Wt 75.7 kg
[2017-01-21] MEDS ORDERED: NO MEDS (09:11)
[2017-01-21 10:01] VITALS: BP 123/76; PULSE 53; RESP 14
--- NOTE | 2017-01-21 10:35 | OPPN ---
Date/Time of Note Date/Time of Note DATE: 01/21/17 TIME: 10:34 Operative Report Preoperative Diagnosis Abdominal pain Chronic heartburn Screening Postoperative Diagnosis Gastroesophageal reflux disease Gastritis with erosions Internal hemorrhoids No colon neoplasm is identified Operation/Procedure Performed Esophagogastroduodenoscopy and biopsy Colonoscopy Surgeon see signature line food and nutrition services assistant None Anesthesia: moderate sedation Estimated blood loss: none Transfusion Required none Specimen Gastric mucosal biopsy Grafts/Implants none Complications none JEFF VELAZQUEZ MD Jan 21, 2017 10:35
[2017-01-21] MEDS ORDERED: MIDAZOLAM 1 MG/ML 2 ML INJ ONE ×3 (10:50)
[2017-01-21] MEDS ORDERED: FENTAnyl 50 MCG/ML VIAL ONE (10:50)
[2017-01-21 11:05] VITALS: BP 113/63; PULSE 66; RESP 24
--- NOTE | 2017-01-21 16:24 | GILP ---
DATE OF PROCEDURE: 01/21/2017 NAME OF PROCEDURES: 1. Esophagogastroduodenoscopy and biopsy. 2. Colonoscopy. SURGEON: Jeff Hargrove MD PREOPERATIVE DIAGNOSES: 1. Abdominal pain. 2. Chronic heartburn. 3. Screening colonoscopy. POSTOPERATIVE DIAGNOSES: 1. Gastroesophageal reflux disease. 2. Gastritis with erosions. 3. Gastric mucosal biopsies were taken for Helicobacter pylori test. 4. Colonoscopy all the way to the cecum. 5. Internal hemorrhoids. 6. No colon neoplasm was identified. INDICATION FOR THE PROCEDURE: Ms. Bindu Garcia is a 61-year-old female patient who had upper abdomina l pain and chronic heartburn, not responding to therapy. Patient also needed screening colonoscopy. The procedures and possible complications are well explained to the patient. She understood and con sented to the procedure. DESCRIPTION OF PROCEDURE: Under the influence of fentanyl and Versed, the gastroscope was carefully introduced into the esophagus and under direct vision, it was advanced to the stomach and through t he pylorus into the duodenal bulb and descending duodenum. FINDINGS: ESOPHAGUS: The patient had gastroesophageal reflux disease. STOMACH: She had gastritis with erosions. Gastric mucosal biopsies were taken for H. pylori test. DUODENUM: Normal. The colonoscope was carefully introduced in the rectum and under direct vision, it was advanced all the way to the cecum. FINDINGS: The patient had internal hemorrhoids. No colon neoplasm was identified. She tolerated the procedures very well and there was no complication from the procedures. At the en d of the procedures, she was awake with stable vital signs and she was discharged home to the care o f her family. IMPRESSION: 1. Gastroesophageal reflux disease. 2. Gastritis with erosions. 3. Gastric mucosal biopsies were taken for Helicobacter pylori test. 4. Colonoscopy all the way to the cecum. 5. Internal hemorrhoids. 6. No colon neoplasm was identified. PLAN: 1. Pantoprazole 40 mg p.o. q.a.m. 2. Await H. pylori test report. 3. Next screening colonoscopy in 10 years. Dictated By: JEFF FUCHS/ELVIRA Conf#: [id number] DID#: [id number]
== END 2017-01-21 11:44 | disposition home or self-care (01) ==
LOC: GIL 08:15
PROVIDERS: ATTEND Internal Medicine Gastroenterology
DX: Z12.11 Encounter for screening for malignant neoplasm of colon (principal); R10.10 Upper abdominal pain, unspecified; R12 Heartburn; K21.9 Gastro-esophageal reflux disease without esophagitis; K29.60 Other gastritis without bleeding; K25.9 Gastric ulcer, unspecified as acute or chronic, without hemorrhage or perforation; K64.8 Other hemorrhoids
CPT/HCPCS: 43239; 45378; 87081; J2250; J3010

== ENCOUNTER → 2017-03-04 | Outpatient (CLI) | payer BC ==
[~2017-03-04] MED LIST changes: +NO MEDS
--- NOTE | 2017-03-04 10:51 | PN ---
Date/Time of Note Date/Time of Note DATE: 03/04/17 TIME: 10:46 Outpatient Progress Note Chief Complaint Left knee pain. HPI 61-year-old female presents today for follow-up for ongoing left knee pain. Patient is postop arthroscopy with partial meniscectomy on 11/16/2016. She states that since the surgery her pain remains equal. When asked, she locates her pain directly at the pedis anserine insertion site. Denies any pain to the medial and lateral compartment of the knee. She states that pain begins at the pedis anserine bursa region and throughout the day it travels up along the medial side of the knee into the quadriceps region medially. Patient is weightbearing for prolonged amounts of time throughout the day with minimal rest. She states that at the end of her work shift she is unable to weight- bear anymore and remains resting for the remainder of the night. She denies any falls or injury. Denies any paresthesias or nerve symptoms. Denies any clicking or popping or instability. Review of Systems Const: No Fever, no chills, no Fatigue, normal appetite, no diaphoresis. Resp: No SOB, no wheezing, no chest pain. CV: No chest pain, no palpitaions, no HOOKER. Physical Exam Blood pressure is 124/76, temperature is 98.7, pulse is 67, respiratory rate is 12, height is 5 foot 4 inches, weight is 162 pounds General Appearance: well-developed, well-nourished, in no acute distress. Left knee: Near full range of motion to the left knee. Patient is able to fully extend. Tenderness to palpation local to the peds anserine bursa. 5/5 strength on resistance. Normal sensory examination to light touch. On inspection there is well-healed surgical scar from previous arthroscopy. Gait showing slight limp/antalgic gait. Mild swelling to the left lower extremity.Negative Homans sign. Allergies Coded Allergies: No Known Drug Allergies (Verified Allergy, Unknown, 11/16/16) Assessment/Plan Problems: (1) Pes anserinus bursitis of left knee * Options discussed with patient's today in regards to conservative measures of treatment with rest, ice, compression with Arturo wrap as well as elevation. Anti- inflammatories as needed also discussed. Alternative option in regards to cortisone injection to the peds anserine bursa for decreased pain due to inflammation was also discussed. Patient has elected to proceed with pes anserine bursa injection. * 1 cc of Kenalog 40 mg/mL along with 2 cc of 1% lidocaine was drawn up using 18 -gauge needle. Area of the Pes anserine bursa was identified and cleaned with Betadine swab and also propyl alcohol swab. Using 25-gauge needle cortisone injection was performed. Patient was observed for 5-10 minutes after procedure and no complications experienced. Arturo wrap placed over the knee for compression. * Patient has scheduled appointment in April 2017 for repeat evaluation and follow-up for monitoring. Work restrictions also provided today with request to allow rest for 5 minutes every hour. Use Arturo wrap while at work. Limit weightbearing to an additional 20-25 pounds while working. Also continue supportive measures with rest, ice, compression and elevation. * Follow-up in April 2017. Patient may follow up sooner should there be any complication. Medications Home Meds Reported Medications [No Meds] No Conflict Check 01/21/17 [Pain Med] No Conflict Check 11/16/16 [No Meds.] No Conflict Check 12/11/11 [None] No Conflict Check 11/12/11 STAR CARBONE PA-C Mar 04, 2017 10:51
== END | disposition home or self-care (01) ==
LOC: HKI 09:49
DX: Z47.1 Aftercare following joint replacement surgery (principal); Z96.652 Presence of left artificial knee joint
CPT/HCPCS: 20610; G0463

== ENCOUNTER → 2017-03-27 | Outpatient (CLI) | END | disposition home or self-care (01) ==

== ENCOUNTER 2017-06-30 22:35 | Emergency (ER) | END 2017-07-01 01:58 | disposition home or self-care (01) ==

== ENCOUNTER → 2017-08-06 | Outpatient (CLI) | END | disposition home or self-care (01) ==

== ENCOUNTER → 2017-11-25 | Outpatient (CLI) | END | disposition home or self-care (01) ==

== ENCOUNTER → 2018-01-27 | Outpatient (CLI) | END | disposition home or self-care (01) ==

== ENCOUNTER → 2018-01-27 | Outpatient (CLI) | END | disposition home or self-care (01) ==

== ENCOUNTER 2018-02-06 07:18 | Inpatient (IN) | END 2018-02-09 11:35 | disposition home health service (06) | DRG 470 ==

== ENCOUNTER → 2018-03-25 | Outpatient (CLI) | END | disposition home or self-care (01) ==

== ENCOUNTER → 2018-06-30 | Outpatient (CLI) | payer BC ==
--- NOTE | 2018-06-30 12:10 | PN ---
Date/Time of Note Date/Time of Note DATE: 06/30/18 TIME: 12:08 Assessment/Plan VTE Prophylaxis Pharmacological prophylaxis: other Assessment/Plan Assessment/Plan 62-year-old female who is doing well after left knee replacement. She is advised to continue activities as tolerated and follow-up annually Subjective 24 Hr Interval Summary Free Text/Dictation Bindu is about 5 months status post left knee replacement. She is progressing well. She is pleased with her outcome. Pain has decreased significantly. She is back to work and is able to do most of her activities without discomfort. Exam/Review of Systems Exam Exam Examination shows a pleasant female. Left knee incision is well-healed. Patient is walking without a limp. She is breathing comfortably, heart has a regular rate and rhythm. Left knee incision is well-healed with minimal swelling. Range of motion is 0-125. No instability and no neurovascular deficit. The left knee x-rays show a total knee replacement in good position with no evidence of loosening LAINA BALLARD Jun 30, 2018 12:10
--- NOTE | 2018-07-02 05:55 | RADRPT ---
PROCEDURE: Left knee x-ray CLINICAL INDICATION: PAIN TECHNIQUE: Weightbearing AP, and lateral views of the knee were obtained. COMPARISON: KNEE 04/28/2018; KNEE 03/24/2018 FINDINGS: There is normal mineralization. No acute fracture or dislocation is seen. Lateral knee arthroplasty is again noted. There is appropriate positioning of the in the prosthesis. There is suggestion of a small joint effusion. IMPRESSION: Stable left knee prosthesis. No evidence of complication. [facility] Physician Musa Date Time Electronically viewed and signed by Physician Musa on 07/02/2018 05:55 CS/
== END | disposition home or self-care (01) ==
LOC: HKI 11:29
PROVIDERS: ATTEND Orthopaedic Surgery
DX: Z09 Encounter for follow-up examination after completed treatment for conditions other than malignant neoplasm (principal); Z96.652 Presence of left artificial knee joint
CPT/HCPCS: 73560; G0463